=== PATIENT | female | born 1955 | race Caucasian/White ===

== ENCOUNTER 2017-02-09 13:04 | Outpatient (CLI) | payer MEDICARE, OTHER ==
[~2017-02-09 13:04] MED LIST: AZITHROMYCIN250 MG ORAL; COLACE100 MG ORAL; IBUPROFEN200 MG ORAL; NAPROSYN500 M1 ORAL; NORCO 5-325 TA1 EACH ORAL; SYNTHROID25 MCG ORAL; ZYRTEC10 MG ORAL
--- NOTE | 2017-02-09 14:46 | GI Initial Consult Note ---
History of Present Illness General Date patient seen: Feb 09, 2017 Time patient seen: 14:41 Referring physician: DALY Reason for Consultation: Colonoscopy screening Present Illness HPI 61 year old pleasant female referred by Dr. Ruffin for colonoscopy screening. In addition, the patient presents today with comoplaint of constipation and abdominal bloating. The patient denies any weight loss, any changes in dietary habits, and no c/o of acid reflux and or GERD. Last colonoscopy was over 10 years ago with unremarkable results. Home Meds Active Scripts Cetirizine Hcl* (ZYRTEC*) 10 Mg Tablet, 10 MG ORAL DAILY, #30 TAB 0 Refills Prov:SABAS MEEKS D.O. 10/03/13 Naproxen* (NAPROSYN*) 500 Mg Tablet, 500 MG ORAL TWICE A DAY, #30 TAB Prov:SABAS MEEKS.O. 10/03/13 Azithromycin* (ZITHROMAX*) 250 Mg Tablet, 250 MG ORAL DAILY, #6 TAB 0 Refills Take two tablets by mouth today, then take one tablet by mouth daily for four days Prov:SABAS MEEKS.O. 10/03/13 Reported Medications Ibuprofen (IBUPROFEN*) 200 Mg Tablet, 200 MG ORAL FOUR TIMES A DAY, #30 TAB 0 Refills 10/03/13 Levothyroxine Sodium* (SYNTHROID*) 25 Mcg Tablet, 25 MCG ORAL DAILY, TAB Take in the morning on an empty stomach, at least 30 minutes before food. 10/03/13 Med list reviewed/reconciled: Yes Allergies: Coded Allergies: No Known Allergies (Unverified , 06/01/13) Patient History History Provided By: Patient PMH Narrative Mild Elevated cholesterol Family History Narrative Father - Colon CA dx at age 60. Social History: Reports: other - coffee Review of Systems All Other Systems: negative except mentioned in HPI Physical Exam T 98 BP 114/72 P 67 95 RA HT 5'1 WT 120 lbs has had weight gain Sp02 EP Interpretation: reviewed General Appearance: normal inspection, well appearing, no apparent distress, alert Head: normocephalic EENT: normal ENT inspection Neck: full range of motion, supple Respiratory: lungs clear, normal breath sounds, no respiratory distress Cardiovascular: normal rate Gastrointestinal: normal inspection, non tender, soft Genitourinary: no CVA tenderness Musculoskeletal: back normal Neurologic: normal inspection, alert, oriented x3, responsive Psychiatric: normal inspection, judgement/insight normal, memory normal Skin: normal inspection, normal color, no rash, warm/dry Lymphatic: normal inspection, no adenopathy GI: Plan Problems: (1) Colonoscopy planned (2) Constipation (3) Bloating Plan colonoscopy scheduled for 02/13/17 - CLD and prep instructions given and acknowledged. Seen with Dr. Torres. Thank you for referring this patient. Shira Chavarria N.P. Feb 09, 2017 14:46
== END 2017-02-09 13:50 | disposition home or self-care (01) ==
LOC: PAN 13:04
DX: K59.00 Constipation, unspecified (principal); R14.0 Abdominal distension (gaseous); Z80.0 Family history of malignant neoplasm of digestive organs
CPT/HCPCS: 99201

== ENCOUNTER 2017-02-13 08:03 | Day surgery (SDC) | payer MEDICARE, MEDICAID ==
[~2017-02-13] VITALS: Ht 154.9 cm; Wt 54.4 kg
[2017-02-13] VITALS (7 sets, daily range): BP systolic 111–129; BP diastolic 67–84
[2017-02-13] MEDS ORDERED: CRESTOR20 MG ORAL (08:40)
--- NOTE | 2017-02-13 10:13 | Anethesia Preoperative Eval ---
Anesthesia Pre-op PMH/ROS General Date of Evaluation: Feb 13, 2017 Time of Evaluation: 10:30 Anesthesiologist: WARREN ASA Score: ASA 2 Mallampati Score Class I : Soft palate, uvula, fauces, pillars visible Class II: Soft palate, uvula, fauces visible Class III: Soft palate, base of uvula visible Class IV: Only hard plate visible Mallampati Classification: Class II Surgeon: Brian Diagnosis: Colon Screening Surgical Procedure: Colonoscopy Anesthesia History: none Family History: no anesthesia problems Allergies: Coded Allergies: CODEINE (Verified Allergy, Unknown, 02/13/17) dizzy,feel like passing out Medications: see eMAR Anesthesia Pre-op Phys. Exam Physician Exam Last Vital Signs Date Time Temp Pulse Resp B/P Pulse Ox O2 Delivery O2 Flow Rate FiO2 02/13/17 08:40 98.2 74 20 124/80 98 Room Air Constitutional: NAD Neurologic: CN 2-12 intact Cardiovascular: RRR Respiratory: CTA Airway Exam Mallampati Score: Class II MO: full ROM: full Teeth: intact Anesthesia Pre-op A/P Risk Assessment & Plan Plan: MAC IV Sedation Status Change Before Surgery: No Pre-Antibiotics Given Within 1 Hr of Incision: Stanley Gandhi M.D. Feb 13, 2017 10:13
--- NOTE | 2017-02-13 10:15 | Immediate Post-Op Evaluation ---
Immediate Post-Op Evalulation Immediate Post-Op Evalulation Procedure: Colonoscopy Date of Evaluation: Feb 13, 2017 Time of Evaluation: 11:00 IV Fluids: 200 Blood Products: 0 Estimated Blood Loss: 0 Urinary Output: 0 Blood Pressure Systolic: 126 Blood Pressure Diastolic: 78 Pulse Rate: 78 Respiratory Rate: 16 O2 Sat by Pulse Oximetry: 99 Temperature (Fahrenheit): 98 Pain Score (1-10): 0 Nausea: No Vomiting: No Patient Status: awake, reacts, patent Hydration Status: adequate Given Within 1 Hr of Incision: Stanley Gandhi M.D. Feb 13, 2017 10:15
--- NOTE | 2017-02-13 10:16 | 48 Hour Post Anesthesia Eval ---
Post Anesthesia Evaluation Procedure: Colonoscopy Date of Evaluation: Feb 15, 2017 Time of Evaluation: 08:00 Blood Pressure Systolic: 120 0: 80 Pulse Rate: 82 Respiratory Rate: 14 Temperature (Fahrenheit): 98 O2 Sat by Pulse Oximetry: 99 Airway: patent Nausea: No Vomiting: No Pain Intensity: 0 Hydration Status: adequate Mental Status/LOC: patient returned to baseline Follow-up care needed: patient intructions given Stanley Jackson M.D. Feb 13, 2017 10:16
[2017-02-13] MEDS ORDERED: Morphine Sulfate 2mg/ml Inj IVP PRN (10:30)
[2017-02-13] MEDS ORDERED: fentaNYL 100 mcg/2 mL IV PRN (10:30)
[2017-02-13] MEDS ORDERED: Metoclopramide 10mg/2ml Inj IVP PRN (10:30)
--- NOTE | 2017-02-13 10:51 | Short Stay Surgery H&P ---
History of Present Illness History of Present Illness Chief Complaint see recent consult note HPI Rose Mendez is a 61 year old female who was admitted on for Colon Screening Patient History Allergies: Coded Allergies: CODEINE (Verified Allergy, Unknown, 02/13/17) dizzy,feel like passing out PAST MEDICAL HISTORY: Past Surgeries: Social History: Medication History Scheduled Ibuprofen (Ibuprofen*), 800 MG ORAL NEEDED, (Reported) Rosuvastatin Calcium* (Crestor*), 20 MG ORAL DAILY, (Reported) Discontinued Medications Azithromycin* (Zithromax*), 250 MG ORAL DAILY Discontinued Reason: Pt stopped taking med Cetirizine Hcl* (Zyrtec*), 10 MG ORAL DAILY Discontinued Reason: Pt stopped taking med Levothyroxine Sodium* (Synthroid*), 25 MCG ORAL DAILY, (Reported) Discontinued Reason: Pt stopped taking med Naproxen* (Naprosyn*), 500 MG ORAL TWICE A DAY Discontinued Reason: Pt stopped taking med Physical Exam Vital Signs Last Vital Signs Date Time Temp Pulse Resp B/P Pulse Ox O2 Delivery O2 Flow Rate FiO2 02/13/17 10:16 82 14 99 02/13/17 08:40 98.2 124/80 Room Air Plan Attestation Are the patient's medical conditions optimized for surgery? JOSE RUDOLPH Feb 13, 2017 10:51
--- NOTE | 2017-02-13 10:52 | Pre-Procedure Note/Attestation ---
Pre-Procedure Note/Attestation Complete Prior to Procedure Planned Procedure: not applicable Procedure Narrative: colonoscopy Indications for Procedure Pre-Operative Diagnosis: screening Attestation I attest that I discussed the nature of the procedure; its benefits; risks and complications; and alternatives (and the risks and benefits of such alternatives ), prior to the procedure, with the patient (or the patient's legal solar manufacturer's representative). I attest that, if there was a reasonable possibility of needing a blood transfusion, the patient (or the patient's legal solar manufacturer's representative) was given the [facility] standardized written summary, pursuant to the [employer] [place] Blood Safety Act ([place] Health and Safety Code # 1645, as amended). I attest that I re-evaluated the patient just prior to the surgery and that there has been no change in the patient's H&P, except as documented below: JOSE RUDOLPH Feb 13, 2017 10:52
[2017-02-13] MEDS ORDERED: Morphine Sulfate 10mg/ml Inj ONE (11:00)
[2017-02-13] MEDS ORDERED: Propofol 10mg/ml 20ml IV ONE (11:00)
--- NOTE | 2017-02-13 11:26 | Endoscopy Procedure Note ---
Endoscopy Procedure Note Indication for Procedure: screening Procedures Performed: colonoscopy Operative Findings/Diagnosis: diverticulosis Specimen: none Pt Tolerated Procedure Well: Yes Estimated Blood Loss: none Anesthesiologist: clair Anesthesia: MAC Implant(s) used?: No 50 yrs or older w/o bx or poly: Yes 10yrs. F/U not recommended: Yes If not recommended, why?: Above average risk 10 yrs. F/U needed: Yes 18 years or older w/prev. colo: No JOSE RUDOLPH Feb 13, 2017 11:26
--- NOTE | 2017-02-13 12:30 | Procedure Note ---
DATE OF PROCEDURE: 02/13/2017 SURGEON: Juan Miguel Torres M.D. PROCEDURE: Colonoscopy. ANESTHESIOLOGIST: INSTRUMENT: Olympus adult flexible colonoscope. INDICATION: Screening colonoscopy evaluation. REASON FOR PROCEDURE: The procedure, risks, benefits, and possible consequences, including hemorrhage, aspiration, perforation and infection, and alternative treatments, were explained to the patient/legal guardian by Dr. Juan Miguel Torres and the patient/legal guardian understood and accepted these risks. DESCRIPTION OF PROCEDURE: After informed consent was obtained, the patient was adequately sedated, first rectal exam was performed, which was positive for internal hemorrhoid. Then, the scope was advanced from the rectum into the cecum. Quality of prep was mediocre. There was a lot of solid material in the cecum. examination of the cecum limited. Also, we had a lot of solid stool throughout the colon. I would say about 25% to 30% of the colonic mucosa. Normally it was not adequately evaluated in this prep. The patient had evidence of moderate diverticulosis in the left colon. No obvious polyp or mass was seen, but again the prep was mediocre. Retroflexion of rectum showed evidence of few small amount of bleeding internal hemorrhoids. SUMMARY OF FINDINGS: 1. Mediocre prep. 2. Diverticulosis. 3. Internal hemorrhoids. RECOMMENDATIONS: Given this prep, we will recommend repeat colonoscopy in three years with better prep or sooner if the patient has any symptoms including bleeding, weight loss, new onset constipation, or any other significant findings. Juan Miguel Torres M.D. DR: SHARON JOB#: [id number] CC:
--- NOTE | 2017-02-15 15:45 | Cardiology Report ---
APPROVED REPORT EKG Measurement Heart [id number] Normal sinus rhythm Normal ECG
== END 2017-02-13 12:30 | disposition home or self-care (01) ==
LOC: GAS 08:03
DX: Z12.11 Encounter for screening for malignant neoplasm of colon (principal); K64.8 Other hemorrhoids; K57.30 Diverticulosis of large intestine without perforation or abscess without bleeding; Z88.5 Allergy status to narcotic agent
CPT/HCPCS: 93005; G0121; J2270; J2704; 94003; 94150

== ENCOUNTER 2017-02-28 09:48 | Outpatient (CLI) | payer MEDICARE, MEDICAID ==
[~2017-02-28 09:48] MED LIST changes: +CRESTOR20 MG ORAL
[2017-02-28 10:18] VITALS: BP 95/60
--- NOTE | 2017-02-28 10:49 | GI Progress Note ---
Assessment/Plan Problems: (1) Bloating ICD Codes: R14.0 - Abdominal distension (gaseous) SNOMED: 532981724 (2) Constipation ICD Codes: K59.00 - Constipation, unspecified SNOMED: 98420681 (3) Diverticulosis ICD Codes: K57.90 - Diverticulosis of intestine, part unspecified, without perforation or abscess without bleeding SNOMED: 428648556 (4) Hemorrhoids ICD Codes: K64.9 - Unspecified hemorrhoids SNOMED: 26345084 Status: stable Status Narrative Seen with Dr. Torres. Assessment/Plan s/p colonoscopy SUMMARY OF FINDINGS reviewed with patient: 1. Mediocre prep. 2. Diverticulosis. 3. Internal hemorrhoids. RECOMMENDATIONS: rx linzess 290mcg RTC x 1 month repeat colonoscopy x 3 years given poor prep unless patient has any symptoms including bleeding, weight loss, new onset constipation, or any other significant findings. Subjective Gastrointestinal/Abdominal: Reports: no symptoms Objective Last 24 Hour Vital Signs Date Time Temp Pulse Resp B/P (MAP) Pulse Ox O2 Delivery O2 Flow Rate FiO2 02/28/17 10:18 61 16 95/60 General Appearance: no apparent distress, alert Cardiovascular: normal rate Respiratory/Chest: normal breath sounds, no respiratory distress Abdominal Exam: normal bowel sounds, non tender, soft Extremities: normal range of motion Shira Chavarria N.P. Feb 28, 2017 10:49
== END 2017-02-28 10:35 | disposition home or self-care (01) ==
LOC: PAN 09:48
DX: R14.0 Abdominal distension (gaseous) (principal); K59.00 Constipation, unspecified; K57.90 Diverticulosis of intestine, part unspecified, without perforation or abscess without bleeding; K64.9 Unspecified hemorrhoids
CPT/HCPCS: 99211

== ENCOUNTER 2018-06-30 23:27 | Emergency (ER) | payer MEDICARE, MEDICAID ==
[~2018-06-30] VITALS: Ht 154.9 cm; Wt 54.4 kg
[2018-06-30] MEDS ORDERED: Fluorescein Strips RIGHT EYE ONE (23:45)
[2018-06-30] MEDS ORDERED: Tetracaine 0.5% Opth 4ml Soln RIGHT EYE ONE (23:45)
[2018-06-30] MEDS ORDERED: Tetracaine 0.5% Opth 4ml Soln ONE (23:46)
[2018-06-30] MEDS ORDERED: Fluorescein Strips ONE (23:47)
[2018-06-30 23:55] VITALS: BP 149/90
[2018-06-30] MEDS ORDERED: TRAVATAN Z5 ML OP (23:55)
[2018-06-30] MEDS ORDERED: COMBIGAN EYE DRO5 ML OP (23:55)
[2018-07-01] MEDS ORDERED: GENTAK5 ML RIGHT EYE (00:13)
--- NOTE | 2018-07-01 03:14 | Emergency Room Report ---
History of Present Illness General Chief Complaint: Eye Problems Source: Patient Present Illness HPI Patient presents emergency department today complaining of foreign body sensation in the right eye. Patient states that she was sitting a few hours ago and noticed something get into her eye. She felt this foreign body sensation. She's been rubbing her eyes. And she does not feel any improvement. She states that she had a history of cataract surgery in her right eye. She also has history of glycol month she uses drops. She denies any visual changes or pain. Denies any other injuries. States that her eye is tearing because the foreign body sensation. She feels that the foreign body sensation is medial near the bridge of her nose. No prior episodes. Patient states that she can get appointment see her doctor on Monday. No other modifying factors. No other associated signs and symptoms. No other complaints were noted. Allergies: Coded Allergies: CODEINE (Verified Allergy, Unknown, 02/13/17) dizzy,feel like passing out Patient History Past Medical History: other - High cholesterol, glaucoma, cataract surgery Past Surgical History: other - Cataract surgery Pertinent Family History: none Social History: Denies: smoking, alcohol use, drug use Now: No Reviewed Nursing Documentation: PMH: Agreed; PSxH: Agreed Nursing Documentation-PMH Past Medical History: No History, Except For Hx Cardiac Problems: Yes - high cholesterol. hypothyroidism Hx Cancer: No Hx Gastrointestinal Problems: Yes Hx Neurological Problems: No Review of Systems All Other Systems: negative except mentioned in HPI Physical Exam Vital Signs Date Time Temp Pulse Resp B/P (MAP) Pulse Ox O2 Delivery O2 Flow Rate FiO2 06/30/18 23:37 97.5 65 16 149/90 97 Sp02 EP Interpretation: reviewed, normal General Appearance: normal inspection, well appearing, no apparent distress, alert Head: atraumatic Eyes: right eye fluoroscene uptake - no uptake, right eye other - hair poking right eye, no other foreign body; bilateral eye normal inspection, bilateral eye PERRL, bilateral eye EOMI, bilateral eye photophobia - No photobia ENT: normal ENT inspection, hearing grossly normal, normal voice Neck: normal inspection, full range of motion, supple, no bony tend Respiratory: normal inspection, lungs clear, normal breath sounds, no respiratory distress, no retraction, no wheezing Cardiovascular #1: regular rate, rhythm, no edema Gastrointestinal: normal inspection, normal bowel sounds, non tender, soft, no guarding, no hernia Genitourinary: no CVA tenderness Musculoskeletal: normal inspection, back normal, normal range of motion Neurologic: normal inspection, alert, responsive, speech normal Psychiatric: normal inspection, judgement/insight normal, mood/affect normal Skin: normal inspection, normal color, no rash Medical Decision Making Diagnostic Impression: Primary Impression: Eye problem ER Course Patient presents emergency department today complaining of foreign body sensation. In patient's right eye. Differential diagnoses include conjunctivitis, foreign body, corneal abrasion just name a few. Patient's exam showed benign. There is no evidence of any forcing uptake. Patient's eye pressure on the right side was only 15-20. No evidence of acute glaucoma. No evidence of foreign body found. However patient's eyelash couldn't have been poking the right eye. This was moved back. Patient felt better. I was also irrigated with approximately 60 mL of normal saline. Given the patient feels better I feel the patient be discharged home. Patient was given a prescription for eyedrops antibiotics in case she has worsening symptoms. She is advised to follow-up with ophthalmology. Advise return emergency room for any worsening symptoms and as needed. Last Vital Signs Date Time Temp Pulse Resp B/P (MAP) Pulse Ox O2 Delivery O2 Flow Rate FiO2 06/30/18 23:55 97.5 78 16 149/90 97 Status: improved Disposition: HOME, SELF-CARE Condition: Stable Scripts Gentamicin Sulfate* (GENTAK*) 5 Ml Drops 1 DROP RIGHT EYE Q4H for 5 Days, #1 DROP 0 Refills Prov: Syed Talley MD 07/01/18 Referrals: NOT CHOSEN IPA/,REFERRING (PCP) Patient Instructions: Eye Foreign Body, [id number] Syed Talley MD Jul 01, 2018 03:14
== END 2018-07-01 00:22 | disposition home or self-care (01) ==
LOC: EMR 23:55
DX: H57.89 Other specified disorders of eye and adnexa (principal); E03.9 Hypothyroidism, unspecified; E78.00 Pure hypercholesterolemia, unspecified
CPT/HCPCS: 99282